=== PATIENT | female | born 1935 | race Caucasian/White ===

== ENCOUNTER 2024-04-13 20:07 | Observation (INO) | payer MEDICARE, BC, SELFPAY ==
[2024-04-13 16:22] VITALS: BP 137/65
--- NOTE | 2024-04-13 16:59 | ED.GENMED ---
History of Present Illness
<Jacque Delarosa SOFTWARE QUALITY TESTER - Last Filed: 04/13/24 19:48>
General
Chief Complaint: Heart Rate Problem
Source: patient
Exam Limitations: none
Time Seen by Provider: 04/13/24 17:01
Nursing documentation reviewed up to this point in time: agreed with
Travel History
Have you had any contact with someone who has COVID-19?: No
Do you have any symptoms of coronavirus? Fever > 100 degrees, chills, cough, shortness of breath, sore throat, loss of taste or smell, muscle aches, or headache?: No
History of Present Illness
History of Present Illness:
88 yo female w h/o HLD, UTI, sent here from Urgent Care stating 'they heard a heart murmur and were very concerned.' Pt has had episodic short periods of dizziness past 2-3 weeks, none lasting more than a minute, some days no episodes, never more
than 2-3 times a day. She is visiting her daughter from [facility]. During last night got up to urinate and felt dizzy and like she had to hold on to things for her balance. She was able to walk to and from the bathroom and back to bed and went to
sleep. 9:30 this a.m. felt a little off balance and dizzy for a few seconds.
Went to [facility], the irrigated her left ear of cerumen. Send here for eval of heart murmur.
Pt denies CP,SOB, abd pain, weakness, numbness in extremities, H/A, recent fall or head injury.
Past History
<Jacque Delarosa SOFTWARE QUALITY TESTER - Last Filed: 04/13/24 19:48>
Past History
ED Past Medical History: Hypercholesterolemia and Other (mild dementia)
ED Past Surgical History: Other (drainage abd abscess)
Social History
Tobacco: Non-smoker
Alcohol: None
Personal:
Living: alone
Review of Systems
<Jacque Delarosa, SOFTWARE QUALITY TESTER - Last Filed: 04/13/24 19:48>
Review of Systems
Allergies reviewed?: Yes
All Other Systems: ROS reviewed and negative except as documented in HPI and ROS
Constitutional: Denies fever or fatigue
Respiratory: Denies trouble breathing
Cardiac: Denies chest pain, palpitations or syncope
ABD/GI: Denies abdominal pain, nausea, vomiting, diarrhea or anorexia
: Denies dysuria, difficulty voiding or urgency
Musculoskeletal: Reports no symptoms
Skin: Reports no symptoms
Neurological: Reports dizzy; Denies headache, weakness or numbness
Phy Exam
<Jacque Delarosa, SOFTWARE QUALITY TESTER - Last Filed: 04/13/24 19:48>
Physical Exam
Physical Exam:
GENERAL: No acute distress. A&Ox3.
CONSTITUTIONAL: Afebrile.
EYES: PERRL, conjunctivae normal, no nystagmus
ENMT: moist mucus membranes, Pharynx nl, TMs normal
RESPIRATORY: Regular respirations, nonlabored, lungs clear.
CARDIOVASCULAR: Regular rate and rhythm, no murmurs, no rubs.
GI: Soft, nontender, normal BS
MUSCULOSKELETAL: Moves with ease. Well perfused.
SKIN: Warm, dry, pink
PSYCH: Normal mood and affect. Well kept, interactive and appropriate
NEUROLOGIC: Awake, alert and oriented. No focal neurological deficits. Finger to nose intact. CN 2-12 intact.
Course
<Jacque Delarosa, SOFTWARE QUALITY TESTER - Last Filed: 04/13/24 19:48>
Orders/Labs/Results
Orders:
Orders
04/13/24 16:17
EKG [Electrocardiogram (*1)] Urgent
Reason for Study: Abnormal EKG
EKG- Treatment ONCE
04/13/24 17:35
Complete Blood Count/With Diff Urgent
Comprehensive Metabolic Panel Urgent
TSH Reflex To Free T4 Urgent
04/13/24 18:04
Urinalysis Reflex To Culture Urgent
Date Specimen was Collected: 04/13/24
Time Specimen was Collected: 18:04
Abnormal Lab Results
04/13/24 04/13/24
17:35 18:04
RBC 3.85 L 10^6/uL
(4.20-5.40)
Hgb 11.2 L g/dL
(12.0-16.0)
Hct 33.4 L %
(37.0-47.0)
RDW 16.0 H %
(11.5-14.5)
MPV 10.9 H fL
(7.4-10.4)
Glucose 113 H mg/dl
(70-99)
Urine Ketones Trace A
(Negative)
04/13/24 17:35
04/13/24 17:35
Vital Signs
Initial and Last Documented VS:
Initial Vital Signs
Temp Pulse Resp BP Pulse Ox
98.9 F 54 20 137/65 99
04/13/24 16:22 04/13/24 16:22 04/13/24 16:22 04/13/24 16:22 04/13/24 16:22
Last Documented Vital Signs
Temp Pulse Resp BP Pulse Ox
98.9 F 56 12 137/79 96
04/13/24 16:22 04/13/24 18:15 04/13/24 18:15 04/13/24 17:47 04/13/24 18:15
<Alireza Hewitt, DO - Last Filed: 04/13/24 18:25>
Orders/Labs/Results
Orders:
Orders
04/13/24 16:17
EKG [Electrocardiogram (*1)] Urgent
Reason for Study: Abnormal EKG
EKG- Treatment ONCE
04/13/24 17:35
Complete Blood Count/With Diff Urgent
Comprehensive Metabolic Panel Urgent
TSH Reflex To Free T4 Urgent
04/13/24 18:04
Urinalysis Reflex To Culture Urgent
Date Specimen was Collected: 04/13/24
Time Specimen was Collected: 18:04
Abnormal Lab Results
04/13/24 04/13/24
17:35 18:04
RBC 3.85 L 10^6/uL
(4.20-5.40)
Hgb 11.2 L g/dL
(12.0-16.0)
Hct 33.4 L %
(37.0-47.0)
RDW 16.0 H %
(11.5-14.5)
MPV 10.9 H fL
(7.4-10.4)
Glucose 113 H mg/dl
(70-99)
Urine Ketones Trace A
(Negative)
04/13/24 17:35
04/13/24 17:35
Vital Signs
Initial and Last Documented VS:
Initial Vital Signs
Temp Pulse Resp BP Pulse Ox
98.9 F 54 20 137/65 99
04/13/24 16:22 04/13/24 16:22 04/13/24 16:22 04/13/24 16:22 04/13/24 16:22
Last Documented Vital Signs
Temp Pulse Resp BP Pulse Ox
98.9 F 56 12 137/79 96
04/13/24 16:22 04/13/24 18:15 04/13/24 18:15 04/13/24 17:47 04/13/24 18:15
<Jacque Delarosa, SOFTWARE QUALITY TESTER - Last Filed: 04/13/24 19:48>
MDM/Problems Addressed
Differential Diagnosis Includes:
Aortic stenosis, anemia, dehydration, UTI
MDM/Problems Addressed:
88 yo female w h/o HLD, UTI, sent here from Urgent Care stating 'they heard a heart murmur and were very concerned.' Pt has had episodic short periods of dizziness past 2-3 weeks, none lasting more than a minute, some days no episodes, never more
than 2-3 times a day. She is visiting her daughter from [facility]. During last night got up to urinate and felt dizzy and like she had to hold on to things for her balance. She was able to walk to and from the bathroom and back to bed and went to
sleep. 9:30 this a.m. felt a little off balance and dizzy for a few seconds.
Went to [facility], the irrigated her left ear of cerumen. Send here for eval of heart murmur.
Pt denies CP,SOB, abd pain, weakness, numbness in extremities, H/A, recent fall or head injury.
6:30 PM
CBC with no clinically significant abnormality. Hemoglobin 11.2
CMP: Normal with
TSH: WNL
U/A: Neg
No audible heart murmur. Dr. Hewitt and to evaluate and agrees.
Patient workup here is basically negative and she is stable to go home.
She will follow-up with her field assessor at [facility].
OOB and ambulating with normal gait
Pt stable for discharge to care of daughter.
She will f/u with her Chemistry Laboratory Technician at [facility] next week
7:15 PM
After discharge, patient ambulating down the hallway with her daughter, states she is feeling lightheaded again and imbalanced, placed in wheelchair. States she feels no better.
Patient to be admitted for more complete evaluation tomorrow
Hospitalist notified of admission
<Jacque Delarosa NP - Last Filed: 04/13/24 19:48>
*EKG
EKG Intrepretation Date: 04/13/24
Interpretation: abnormal
Rate: bradycardiac
Rhythm: sinus
[place]: normal axis
Interval: normal interval
QRS Pattern: normal QRS
Ischemia: no ischemia
*Critical Care Note
Total Time (30-74mins, 75-104mins- exclusive of procedures): Not Applicable
ED Attending Note
<Jacque Delarosa SOFTWARE QUALITY TESTER - Last Filed: 04/13/24 19:48>
-
Portions of this chart may have been created with voice recognition software.� Occasional wrong word or��sound alike� substitutions may have occurred due to the inherent limitations of voice recognition software.
<Alireza Hewitt DO - Last Filed: 04/13/24 18:25>
ED Attending Note
Patient seen and examined by attending physician: Yes
I performed the substantive portion of visit, reviewed & personally made and approve the management plan that is documented in note by myself or SERA.: Yes
ED Attending Note:
I have seen and evaluated the patient with a [id number] encounter. I have spoken to the advance practicer provider and involved in the medical history, the physical exam, medical decision making.
Evaluation and management service: agree unless noted differently below.
Results interpretation: agree unless noted differently below.
Focused HPI: 88-year-old female presenting from urgent care for evaluation of heart murmur. She went to urgent care complaining of intermittent dizziness. She denies chest pain or shortness of breath. Patient states urgent care heard a murmur and
sent her in for evaluation
Physical exam: Sitting in bed comfortably. Heart regular rate and rhythm. No murmur auscultated.
Medical Decision Making: I did not auscultate a murmur. We did discuss outpatient echo and cardiology evaluation. I do hear a split S1/S2 with deep inspiration. This is possibly what urgent care auscultated. Given her age, we discussed the
possibility of a very mild aortic stenosis. Regardless, this is outpatient workup and patient feels comfortable going home.
Discharge Plan
Departure
Patient Disposition: Admit
Date of Disposition: 04/13/24
Time of Disposition: 18:43
Admit to: Med/Surg
Presentation/result/management discussed w/ accepting MD/DO: Hospitalist
Patient with high blood pressure during this ER visit?: No
Condition: Fair
Discharge Problem:
Dizzinesses
Prescriptions:
No Action
atorvastatin 10 mg tablet
10 mg PO HS
cyanocobalamin (vitamin B-12) 1,000 mcg/mL solution
1,000 mcg IM MONTHLY
benazepril 10 mg tablet
10 mg PO HS PRN (Reason: high bp)
Patient Comments:
04/13/2024: family states hasn't taken a bit due to BP being low
donepezil 10 mg tablet,disintegrating
5 mg PO HS
mirtazapine 15 mg tablet
15 mg PO HS
Referrals:
Timothy Bae DO [Family Provider] - Call in 1-3 days for appt
Interventions
Interventions:
*Risk Screen - Suicide Last Done: 04/13/24 16:25
*General Assessment Last Done: 04/13/24 17:02
*Neglect/Abuse Screening Last Done: 04/13/24 17:02
ED- Fall Risk Assessment Last Done: 04/13/24 18:20
*ED COVID-19 Vaccine History Last Done: 04/13/24 17:02
ED- Cardiac Assessment Last Done: 04/13/24 18:20
ED- Pulmonary Assessment Last Done: 04/13/24 18:20
Discharge Date and Time
Print Language: TURKMEN
[2024-04-13 17:01] VITALS: BMI 28.9
[2024-04-13 17:47] VITALS: BP 137/79
[2024-04-13 17:50] LABS: % Basophils 0.8 % (0-2); % Eosinophils 2.6 % (0-6); % Immature Granulocytes 0.3 % (0-0.5); % Neutrophils 48.3 % (42.2-75.2); Absolute Basophils 0.1 10^3/uL (0-0.2); Absolute Eosinophils 0.2 10^3/uL (0-0.7); Absolute Lymphocytes 2.6 10^3/uL (1.2-3.4); Absolute Monocytes 0.5 10^3/uL (0.1-0.6); Absolute Neutrophils 3.2 10^3/uL (1.4-6.5); Hematocrit 33.4 % (37.0-47.0); Hemoglobin 11.2 g/dL (12.0-16.0); Mean Corp Hgb Conc. 33.5 g/dL (33.0-37.0); Mean Corpuscular Hgb 29.1 pg (27.0-31.0); Mean Corpuscular Volume 86.8 fL (81.0-99.0); Mean Platelet Volume 10.9 fL (7.4-10.4); Nucleated Red Blood Cells % 0 %; Platelet Count 269 10^3/uL (130-400); Red Blood Cell Count 3.85 10^6/uL (4.20-5.40); White Blood Cell Count 6.5 10^3/uL (4.8-10.8)
[2024-04-13 18:01] LABS: ALT (SGPT) 20 U/L (0-35); AST (SGOT) 30 U/L (14-36); Albumin 4.3 g/dl (3.5-5.0); Alkaline Phosphatase 77 U/L (38-126); Blood Urea Nitrogen 13 mg/dl (7-17); Carbon Dioxide 24 mmol/L (22-30); Chloride 107 mmol/L (98-107); Estimated Creatinine Clearance 56 ml/min; Glucose 113 mg/dl (70-99); Sodium 141 mmol/L (135-145); Total Bilirubin 0.5 mg/dl (0.2-1.3); eGFR > 60.00
[2024-04-13 18:20] VITALS: BP 136/72; BP 137/79; BP 139/81; PULSE 58; PULSE 62; PULSE 67
[2024-04-13 18:27] LABS: Urine Albumin Negative (Neg - Trace); Urine Bilirubin Negative (Negative); Urine Character Clear (Clear); Urine Color Straw; Urine Glucose Negative (Negative); Urine Ketone Trace (Negative); Urine Leukocyte Negative (Negative); Urine Nitrite Negative (Negative); Urine Occult Blood Negative (Negative); Urine Urobilinogen Negative (Neg - 1+)
[2024-04-13 18:37] LABS: TSH Reflex To Free T4 1.81 uIU/ml (0.47-4.68)
--- NOTE | 2024-04-13 19:59 | HPS.HSE ---
Family Physician
-
Family Physician: Timothy Bae
Chief Complaint
-
dizziness
History of Present Illness
88-year-old female past medical history of hyperlipidemia, hypertension, dementia, anxiety/depression, restless legs, presenting for episodic dizziness. Over the past 2 to 3 weeks she has been intermittently dizzy lasting no more than a minute.
Dizziness is described as feeling off balance. Denies vertigo. She has no more than 2-3 episodes per day. Dizziness is not related particularly to activity since it has occurred while she was lying in bed as well. Dizziness is not associated
with head movements. However she did feel more dizzy when she stood up at urgent care today. She denies any episode of passing out or falls.
Patient denies any chest pain, shortness of breath or lower extreme edema.
She has not been taking benazepril due to normal blood pressure without it. Denies any new medications.
During last night she got up to urinate and felt dizzy and felt like she had to hold onto things for her balance. She was able to walk to and from the bathroom.
[facility] and [facility] due to cerumen. She was found to have a murmur on examination and sent to the emergency room.
She has also been having numbness and tingling of her toes over the past several weeks. She denies any headache or blurry vision or focal weakness.
No family history of heart disease.
She does not smoke or drink alcohol.
Medical History
Past Medical History
Past Medical History: Reports Other (hyperlipidemia, hypertension, dementia, anxiety/depression, restless legs,)
Past Surgical History: Reports None
Social History
Tobacco: Non-smoker
Alcohol: None
Drug: None
Family History
Family History: Not pertinent
Allergies / Home Medications
Allergies reflects when Allergies were last updated in [facility].
Home Medications with original date entered in [facility]
Allergy/Medication List:
Allergies
Allergy/AdvReac Type Severity Reaction Status Date / Time
No Known Allergies Allergy Unverified 04/13/24 16:24
Home Medications
atorvastatin 10 mg tablet 10 mg PO HS 04/13/24
benazepril 10 mg tablet 10 mg PO HS PRN high bp 04/13/24
cyanocobalamin (vitamin B-12) 1,000 mcg/mL injection solution 1,000 mcg IM MONTHLY 04/13/24
donepezil 10 mg disintegrating tablet 5 mg PO HS 04/13/24
mirtazapine 15 mg tablet 15 mg PO HS 04/13/24
Review of Systems
-
History Source: Patient
A 12 point ROS was completed and negative except as noted: Yes
Constitutional: Reports No Symptoms
EENT: Reports No Symptoms
Respiratory: Reports No Symptoms
Cardiac: Reports No Symptoms
Abdomen/GI: Reports No Symptoms
: Reports No Symptoms
Musculoskeletal: Reports No Symptoms
Skin: Reports No Symptoms
Neurological: Reports No Symptoms
Endocrine: Reports No Symptoms
Hematologic/Lymphatic: Reports No Symptoms
Psych: Reports No Symptoms
Physical Exam
Vital Signs
Vital Signs
Temp Pulse Resp BP Pulse Ox
98.9 F 56 20 137/79 95
04/13/24 16:22 04/13/24 19:45 04/13/24 19:45 04/13/24 17:47 04/13/24 18:45
Physical Exam
General: Well Developed, Well Nourished and No Apparent Distress
HEENT: NormoCephalic, Moist mucous membranes and Atraumatic
Respiratory: Clear
Cardiac: S1/S2, Regular Rhythm and Other (systolic murmur ); No Murmur or Rub
GI: Soft, Non Tender, Non Distended and Normal Bowel Sounds; No Organomegaly
Rectal: Deferred by Provider
Musculoskeletal: No Clubbing, No Cyanosis and No Edema
Skin: No Rash
Neuro: Nonfocal/grossly intact
Laboratory Results
-
04/13/24 17:35
04/13/24 17:35
Laboratory Results
Total Bilirubin 0.5 mg/dl (0.2-1.3) 04/13/24 17:35
AST 30 U/L (14-36) 04/13/24 17:35
ALT 20 U/L (0-35) 04/13/24 17:35
Alkaline Phosphatase 77 U/L (38-126) 04/13/24 17:35
Data Reviewed
-
Lab Data: Labs Reviewed by me
Old Records: Reviewed
Impression/Plan
-
IMPRESSION:
PLAN:
# Disequilibrium/lightheadedness possibly related to orthostatic hypotension versus aortic stenosis vs B12 deficiency, CVA less likely
-systolic murmur on examination
-EKG shows sinus bradycardia,
-Check orthostatic vital signs
-Check B12, TSH
-Check echocardiogram
Hyperlipidemia
-Continue statin
Essential hypertension
-Not taking benazepril
Mild dementia
-Continue donezepil
Anxiety/depression
-Continue mirtazapine
Restless legs
-Apparently takes B12 monthly for this
Full code
DVT prophylaxis�heparin
Regular diet
[2024-04-13 20:00] VITALS: BP 121/98
[2024-04-13 21:58] VITALS: BP 125/64; BMI 28.2
[2024-04-13] MEDS: HEPARIN 5000 UNITS SC (22:21)
[2024-04-13] MEDS: ARICEPT 5 MG PO (22:23)
[2024-04-13] MEDS: LIPITOR 10 MG PO (22:23)
[2024-04-13] MEDS: REMERON 15 MG PO (22:23)
--- NOTE | 2024-04-13 22:29 | PTCARENOTE ---
Advised covering provider JESS Baer of Troponin lab. Patient is pain free and denies nausea at this time.
[2024-04-13 22:42] LABS: Vitamin B12 276 pg/ml (239-931)
[2024-04-13 23:24] VITALS: BP 125/64
[2024-04-14] VITALS (8 sets, daily range): BP systolic 110–144; BP diastolic 57–83; PULSE 61–72
--- NOTE | 2024-04-14 02:06 | PTCARENOTE ---
Addendum entered by Romulo Blanchard RN 04/14/24 03:07:
ED no delay nurse report on 04/13 documents recent C-Diff infection; therefore, patient placed on Enhanced Precautions. Patient is a poor historian.
Original Note:
04/13 Received patient from ED. Patient able ambulated to the bedside with an assist of 2. She felt dizzy and had to go slow. Lungs coarse, pox 96% on room air. Heart rate regular, murmur, positive pulses, no edema. She denies C-Diff or any recent
loose stools. VSS. Small bruise on L knee and below L knee. She denies fall. Bed alarm placed for patient safety. Patient verbalized an understanding to ring for all transfers. Call Baugh in reach.
[2024-04-14 06:08] LABS: % Basophils 0.9 % (0-2); % Eosinophils 3.1 % (0-6); % Lymphocytes 51.9 % (20.5-51.1); % Monocytes 8.7 % (1.7-9.3); % Neutrophils 35.4 % (42.2-75.2); Absolute Basophils 0.1 10^3/uL (0-0.2); Absolute Eosinophils 0.2 10^3/uL (0-0.7); Absolute Monocytes 0.5 10^3/uL (0.1-0.6); Absolute Neutrophils 2.1 10^3/uL (1.4-6.5); Hematocrit 33.5 % (37.0-47.0); Hemoglobin 11.1 g/dL (12.0-16.0); Mean Corp Hgb Conc. 33.1 g/dL (33.0-37.0); Mean Corpuscular Volume 87.5 fL (81.0-99.0); Mean Platelet Volume 11.4 fL (7.4-10.4); Nucleated Red Blood Cells % 0 %; Platelet Count 224 10^3/uL (130-400); Red Blood Cell Count 3.83 10^6/uL (4.20-5.40); Red Cell Dist. Width 15.7 % (11.5-14.5); White Blood Cell Count 5.8 10^3/uL (4.8-10.8)
[2024-04-14 07:32] LABS: ALT (SGPT) 20 U/L (0-35); AST (SGOT) 28 U/L (14-36); Albumin 4.1 g/dl (3.5-5.0); Alkaline Phosphatase 78 U/L (38-126); Blood Urea Nitrogen 11 mg/dl (7-17); Calcium 9.7 mg/dl (8.4-10.2); Carbon Dioxide 28 mmol/L (22-30); Chloride 110 mmol/L (98-107); Estimated Creatinine Clearance 55 ml/min; Glucose 88 mg/dl (70-99); Potassium 4.1 mmol/L (3.5-5.1); Sodium 145 mmol/L (135-145); Total Bilirubin 0.5 mg/dl (0.2-1.3); Total Protein 6.7 g/dl (6.3-8.2); eGFR > 60.00
--- NOTE | 2024-04-14 10:36 | W.PN.HOSP.TC ---
Today's Communication/Plan
-
B12 supplementation
PT/OT
pending ECHO
fall precautions
Assessment / Plan
Assessment / Plan
Physical Exam
General: Well Developed, Well Nourished and No Apparent Distress
HEENT: NormoCephalic, Moist mucous membranes and Atraumatic
Respiratory: Clear
Cardiac: S1/S2, Regular Rhythm and Other (systolic murmur ); No Murmur or Rub
GI: Soft, Non Tender, Non Distended and Normal Bowel Sounds; No Organomegaly
Musculoskeletal: No Clubbing, No Cyanosis and No Edema
Skin: No Rash
Neuro: AOx3
88-year-old female past medical history of hyperlipidemia, hypertension, dementia, anxiety/depression, restless legs, presenting for evaluation episodic dizziness heart murmur and numbness toes past few weeks. Found to be B12 deficient, patient
endorses monthly B12 injections for years, denies missed doses.
# Disequilibrium/lightheadedness possibly related to orthostatic hypotension versus aortic stenosis vs B12 deficiency, CVA unlikely
-systolic murmur on examination
-EKG shows sinus bradycardia,
-Orthostatic Neg
-TSH wnl
-pending echocardiogram, not routinely done over weekend
-reports compliance with outpatient monthly B12 injections, received B12 1000 PO oral 04/14, will increase B12 IM injections to weekly. Outpt repeat B12 level in 1 month recommended
Hyperlipidemia
-Continue statin
Essential hypertension
-Not taking benazepril
-monitor and titrate antihypertensive regimen as necessary
Mild dementia
-Continue donezepil
Anxiety/depression
-Continue mirtazapine
Restless legs
-Takes B12 monthly for this, increased to weekly for B12 deficiency as above
PT/OT appreciated home services
Full code
DVT prophylaxis�heparin
Regular diet
Wilshire Axon listed contact daughter Fern called no answer received
I spent a total of 55 minutes with the patient or on the floor. More than 50% of this time involved counseling and coordination of care.
Anticipated Discharge: Today
Subjective/Interval History
-
Date of Service: April 14, 2024
Sitting up comfortably in chair. Continues to report intermittent dizziness numbness of toes. Otherwise appears well no acute distress.
Objective Data
-
Labs:
Laboratory Results
04/14/24 04/14/24
05:49 07:00
WBC 5.8
Hgb 11.1 L
Hct 33.5 L
Plt Count 224
Sodium Cancelled 145
Potassium Cancelled 4.1
Chloride Cancelled 110 H
Carbon Dioxide Cancelled 28
BUN Cancelled 11
Creatinine Cancelled 0.7
Glucose Cancelled 88
Calcium Cancelled 9.7
Total Bilirubin Cancelled 0.5
AST Cancelled 28
ALT Cancelled 20
Alkaline Phosphatase Cancelled 78
Vital Signs:
Vital Signs
Temp Pulse Resp BP Pulse Ox
97.3 F 58 16 120/65 97
04/14/24 07:35 04/14/24 07:35 04/14/24 07:35 04/14/24 07:35 04/14/24 07:35
I&O
04/13/24 04/14/24 04/15/24
06:59 06:59 06:59
Intake Total 240 / 240
Balance 240 / 240
[2024-04-14] MEDS: HEPARIN 5000 UNITS SC ×2 (11:23→19:51)
[2024-04-14] MEDS: VITAMIN B-12 1000 MCG PO (11:24)
--- NOTE | 2024-04-14 15:13 | CM ---
CM following re: d/c planning.
Unable to complete IA as pt poor historian.
Call placed to contact / daughter, unable to reach. LM requesting call back.
[2024-04-14] MEDS: LIPITOR 10 MG PO (21:51)
[2024-04-14] MEDS: ARICEPT 5 MG PO (21:51)
[2024-04-14] MEDS: REMERON 15 MG PO (21:51)
[2024-04-15 03:11] VITALS: BP 145/65
--- NOTE | 2024-04-15 07:09 | W.PN.HOSP.TC ---
Today's Communication/Plan
-
B12 supplementation
PT/OT
pending ECHO
fall precautions
Assessment / Plan
Assessment / Plan
Physical Exam
General: Well Developed, Well Nourished and No Apparent Distress
HEENT: NormoCephalic, Moist mucous membranes and Atraumatic
Respiratory: Clear
Cardiac: S1/S2, Regular Rhythm and Other (systolic murmur ); No Murmur or Rub
GI: Soft, Non Tender, Non Distended and Normal Bowel Sounds; No Organomegaly
Musculoskeletal: No Clubbing, No Cyanosis and No Edema
Skin: No Rash
Neuro: AOx3
88-year-old female past medical history of hyperlipidemia, hypertension, dementia, anxiety/depression, restless legs, presenting for evaluation episodic dizziness heart murmur and numbness toes past few weeks. Found to be B12 deficient, patient
endorses monthly B12 injections for years, denies missed doses.
# Disequilibrium/lightheadedness possibly related to orthostatic hypotension versus aortic stenosis vs B12 deficiency, CVA unlikely
-systolic murmur on examination
-EKG shows sinus bradycardia,
-Orthostatic Neg
-TSH wnl
-pending echocardiogram, not routinely done over weekend
-reports compliance with outpatient monthly B12 injections, received B12 1000 PO oral 04/14, will increase B12 IM injections to weekly. Outpt repeat B12 level in 1 month recommended
#Heart Murmur
Pending ECHO evaluation
Daughter notes reduced range of motion LE's with associate hip pain.
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
Hyperlipidemia
-Continue statin
Essential hypertension
-Not taking benazepril
-monitor and titrate antihypertensive regimen as necessary
Mild dementia
-Continue donezepil
Anxiety/depression
-Continue mirtazapine
Restless legs
-Takes B12 monthly for this, increased to weekly for B12 deficiency as above
PT/OT appreciated home services
Full code
DVT prophylaxis�heparin
Regular diet
Discussed with patient and Patient's Daughter Fern
I spent a total of 55 minutes with the patient or on the floor. More than 50% of this time involved counseling and coordination of care.
Anticipated Discharge: 24 - 48 hours
Subjective/Interval History
-
Date of Service: April 15, 2024
No acute distress. Reports feeling well. dizziness improved/resolved.
Objective Data
-
Vital Signs:
Vital Signs
Temp Pulse Resp BP Pulse Ox
97.3 F 47 18 145/65 97
04/15/24 03:11 04/15/24 03:11 04/15/24 03:11 04/15/24 03:11 04/15/24 03:11
I&O
04/14/24 04/15/24 04/16/24
06:59 06:59 06:59
Intake Total 240 / 240 480 / 480
Balance 240 / 240 480 / 480
[2024-04-15 07:25] VITALS: BP 146/76
[2024-04-15] MEDS: CYANOCOBALAMIN 1000 MCG IM (09:17)
[2024-04-15] MEDS: HEPARIN 5000 UNITS SC ×2 (09:17→20:29)
--- NOTE | 2024-04-15 11:21 | CM ---
CM spoke with pt's daughter Fern [phone].
Per Fern, pt lives alone in a 2SH. Bedroom/bathroom on second floor. Stair glide to second floor. No SC on first floor.
Prior to admission, pt independent with ADL's, uses RW PRN and owns a cane. Drives locally to [place] and [place].
Confirmed PCP is Timothy Bae and pharmacy is [facility] off [address]
Pt has HC history with [facility] back in November.
CM discussed PT recc for home PT. Daughter in agreement. Offered choice of agency. Preference is for [facility]. CM to send referral via [facility].
Anticipated dc dispo home with [facility] when medically stable.
[2024-04-15 11:34] VITALS: BP 133/72
--- NOTE | 2024-04-15 14:31 | CM ---
CM got VM left on CM office phone from daughter Fern requesting callback. CM called back and left VM that this CM was returning her call with callback information.
Fern [phone]
[2024-04-15 15:26] VITALS: BMI 28.2
[2024-04-15 15:51] VITALS: BP 129/66
[2024-04-15 18:59] VITALS: BP 127/61
[2024-04-15] MEDS: REMERON 15 MG PO (22:31)
[2024-04-15] MEDS: LIPITOR 10 MG PO (22:31)
[2024-04-15] MEDS: ARICEPT 5 MG PO (22:31)
[2024-04-15 22:56] VITALS: BP 141/73
[2024-04-16 03:13] VITALS: BP 134/76
[2024-04-16 07:20] VITALS: BP 137/79
--- NOTE | 2024-04-16 07:46 | W.PN.HOSP.TC ---
Today's Communication/Plan
-
discharge
Assessment / Plan
Assessment / Plan
Physical Exam
General: Well Developed, Well Nourished and No Apparent Distress
HEENT: NormoCephalic, Moist mucous membranes and Atraumatic
Respiratory: Clear
Cardiac: S1/S2, Regular Rhythm and Other (systolic murmur )
GI: Soft, Non Tender, Non Distended and Normal Bowel Sounds; No Organomegaly
Musculoskeletal: No Clubbing, No Cyanosis and No Edema
Skin: No Rash
Neuro: AOx3
88-year-old female past medical history of hyperlipidemia, hypertension, dementia, anxiety/depression, restless legs, presenting for evaluation episodic dizziness heart murmur and numbness toes past few weeks. Found to be B12 deficient, patient
endorses monthly B12 injections for years, denies missed doses.
# Disequilibrium/lightheadedness possibly related to orthostatic hypotension versus aortic stenosis vs B12 deficiency, CVA unlikely
-systolic murmur on examination
-EKG shows sinus bradycardia,
-Orthostatic Neg
-TSH wnl
-ECHO appreciated no significant abn's
-reports compliance with outpatient monthly B12 injections, received B12 1000 PO oral 04/14, will increase B12 IM injections to weekly. Outpt repeat B12 level in 1 month recommended
#Heart Murmur
Pending ECHO evaluation
Daughter notes reduced range of motion LE's with associate hip pain.
Hip X-ray appreciated no acute fracture or dislocation, likely symptoms d/t arthritis.
Hyperlipidemia
-Continue statin
Essential hypertension
-Not taking benazepril
-monitor and titrate antihypertensive regimen as necessary
Mild dementia
-Continue donezepil
Anxiety/depression
-Continue mirtazapine
Restless legs
-Takes B12 monthly for this, increased to weekly for B12 deficiency as above
PT/OT appreciated home services
Full code
DVT prophylaxis�heparin
Regular diet
Declined home services but otherwise medically stable for discharge home with outpatient follow up recommendations.
Total Time Preparing Discharge ___50____ minutes including examination of the patient, summary of the hospital stay, instructions for continuing care to all relevant caregivers; and preparation of discharge records, prescriptions, and referral
forms if necessary.
Anticipated Discharge: Today
Subjective/Interval History
-
Date of Service: April 16, 2024
Seen and examined at bedside in no acute distress. Reports overall feeling well. Resolution of dizziness. Continues to report numbness of toes but denies new acute issues at this time. Eager to go home.
Objective Data
-
Vital Signs:
Vital Signs
Temp Pulse Resp BP Pulse Ox
97.5 F 61 16 134/76 96
04/16/24 03:13 04/16/24 03:13 04/16/24 03:13 04/16/24 03:13 04/16/24 03:13
I&O
04/15/24 04/16/24 04/17/24
06:59 06:59 06:59
Intake Total 480 / 480 360 / 360
Balance 480 / 480 360 / 360
[2024-04-16] MEDS: HEPARIN 5000 UNITS SC (08:54)
[2024-04-16] MEDS: THERAGRAN 1 TABLET PO (08:54)
--- NOTE | 2024-04-16 09:51 | CM ---
Reviewed the chart notes and spoke with the patient at the bedside. PADDY given and explained. The patient had no questions with regards to the letter.
The patient anticipates being discharged today to home. Discussed recommendation of VN. Patient declined. Per patient, her daughter will pick-up and take home to [place] until next weekend when she will return to this area. CM continues to
be available to patient/family and is monitoring medical plan for needs at discharge.
Plan: Discharge to home with no identified needs at this time.
[2024-04-16 11:15] VITALS: BP 145/82
[2024-04-16 15:15] VITALS: BP 133/70
--- NOTE | 2024-04-16 16:29 | W.DCSUMMARY ---
Discharge Summary
Discharge Data
Date of Admission: 04/13/24
Date of Discharge: 04/16/24
-
Pending Results: No
Hospital Course
88F HLD, HTN, dementia, anxiety/depression, restless legs, presented for evaluation episodic dizziness heart murmur and numbness toes past few weeks. Found to be B12 deficient, patient endorsed monthly B12 injections for years, denies missed doses.
Disequilibrium/lightheadedness possibly related to orthostatic hypotension versus aortic stenosis (ruled out) vs B12 deficiency, CVA unlikely (more likely B12 deficiency). Systolic heart murmur on examination. EKG showed sinus bradycardia,
Orthostatic Neg, TSH wnl. ECHO appreciated no significant abn's. Reported compliance with outpatient monthly B12 injections, patient was subsequently increased to weekly B12 injections with outpatient follow up repeat B12 level in 1 month with
primary care provider recommended. Regarding Heart Murmur, ECHO appreciated no acute abn's, aortic valve sclerosis w/o stenosis. Daughter noted reduced range of motion LE's with associate hip pain. Hip X-ray appreciated no acute fracture or
dislocation, likely symptoms d/t arthritis. Patient was offered home services but refused. Otherwise medically stable, patient was discharged home with outpatient follow up recommendations.
Discharge Plan
-
Patient Disposition: Home (Routine Discharge)
Discharge Diagnosis/Procedures: Episodic dizziness toe numbness due to B12 deficiency
Heart Murmur, ECHO noted no acute abnormalities 04/16
Hyperlipidemia
History Hypertension
Dementia
Anxiety/depression
Restless legs
Condition: Fair
Diet: Regular
Activity: As tolerated and With Walker
Driving Restrictions: No driving
Bathing Restrictions: None
Blood Work: Please repeat B12 level with primary care provider in 1 month of discharge
Activity Restrictions/Additional Instructions:
Please follow up with primary care provider in 1 week of discharge.
B12 injections have been increased to weekly for B12 deficiency. Next Intramuscular dose is due 04/23/24
Please take medications as prescribed/recommended and follow up with primary care provider and/or other healthcare provider involved in your care for refills and/or further adjustment to your medication regimen as necessary.
Instructions: Vitamin B12 deficiency and folate deficiency
Referrals:
Timothy Bae DO [Family Provider] - in one week
Prescriptions:
New
cyanocobalamin (vitamin B-12) 1,000 mcg/mL Solution
1,000 mcg IM MO Qty: 10 0RF
Rx Instructions:
Weekly injections to start Tuesday04/23/24
Repeat B12 level with primary care provider in 1 month
multivitamin with folic acid [Tab-A-Anderson] 400 mcg Tablet
1 tab PO DAILY 30 Days Qty: 30 0RF
Continued
atorvastatin 10 mg tablet
10 mg PO HS
benazepril 10 mg tablet
10 mg PO HS PRN (Reason: high bp)
Patient Comments:
04/13/2024: family states hasn't taken a bit due to BP being low
donepezil 10 mg tablet,disintegrating
5 mg PO HS
mirtazapine 15 mg tablet
15 mg PO HS
Discontinued
cyanocobalamin (vitamin B-12) 1,000 mcg/mL solution
1,000 mcg IM MONTHLY
Discharge Orders:
Discharge Patient (As Directed); Ordered 04/16/24
Ordered By: Oracio Champagne
Discharge Date and Time
Discharge Date/Time: 04/16/24 19:10
Print Language: SRI LANKAN
== END 2024-04-16 19:10 | disposition home or self-care (01) ==
LOC: 2 NORTH 20:07
PROVIDERS: Registered Nurse; ADMITTING PHYSICIAN Hospitalist; ATTENDING PHYSICIAN Internal Medicine; EMERGENCY PHYSICIAN Student in an Organized Health Care Education/Training Program; FAMILY PHYSICIAN Internal Medicine
DX: R42 Dizziness and giddiness (principal); R01.1 Cardiac murmur, unspecified; R20.0 Anesthesia of skin; E53.8 Deficiency of other specified B group vitamins; E78.00 Pure hypercholesterolemia, unspecified; F32.A Depression, unspecified; E78.49 Other hyperlipidemia; F03.A4 Unspecified dementia, mild, with anxiety; R94.31 Abnormal electrocardiogram [ECG] [EKG]; M25.559 Pain in unspecified hip; R26.2 Difficulty in walking, not elsewhere classified; M51.36 Other intervertebral disc degeneration, lumbar region; I10 Essential (primary) hypertension; G25.81 Restless legs syndrome; R00.1 Bradycardia, unspecified; Z87.440 Personal history of urinary (tract) infections
CPT/HCPCS: 73521; 80053; 81003; 82607; 84443; 85025; 93005; 93306; 97116; 97162; 97166; 99285; G0378